=== PATIENT | male | born 1975 | race Caucasian/White ===

== ENCOUNTER 2016-09-29 19:54 | Emergency (ER) | payer OTHER ==
[2016-09-29 20:01] VITALS: BP 125/84; PULSE 82; TEMP 98.3; BMI 24.4
[2016-09-29] MEDS ORDERED: DIPHTH,PERTUSS(ACELL),TET 0.5 ML DISP.SYRIN IM ONE (20:01)
--- NOTE | 2016-09-29 20:15 | PDOC ---
History of Present Illness - General History Source: Patient Exam Limitations: No Limitations - History of Present Illness Initial Comments: 09/29/16 20:26 The patient is a 41 year old male, with no significant past medical history, who presents to the emergency department with an laceration injury to his left pinky finger status post getting it crushed by a drill. The patient reports that just prior to arrival he was taking a screw out of the wall with a drill when the pressure of the drill crushed his finger. He states that he does not believe the finger is broken and reports that his pain is a 6/10 in severity. The patient states that his tetanus is not up to date. Allergies: None Social history:Current everyday smoker (10 cigarettes per day) <Olena Brar - Last Filed: 09/29/16 21:17> <Patrick Miller - Last Filed: 09/30/16 03:36> - General Chief Complaint: Laceration Stated Complaint: INJURY TO LEFT PINKY Time Seen by Provider: 09/29/16 20:01 Past History <Olena Brar - Last Filed: 09/29/16 21:17> - Past Medical History Other medical history: DENIES - Immunization History Td Vaccination: Yes - Psycho/Social/Smoking Cessation Hx Anxiety: No Suicidal Ideation: No Smoking History: Current every day smoker Have you smoked in the past 12 months: Yes Number of Cigarettes Smoked Daily: 10 Information on smoking cessation initiated: Yes 'Breaking Loose' booklet given: 09/29/16 Hx Alcohol Use: No Drug/Substance Use Hx: No Substance Use Type: None <Patrick Miller - Last Filed: 09/30/16 03:36> - Past Medical History Allergies/Adverse Reactions: Allergies Allergy/AdvReac Type Severity Reaction Status Date / Time No Known Allergies Allergy Verified 09/29/16 19:55 Home Medications: Ambulatory Orders NK [No Known Home Medication] 09/29/16 Review of Systems - Review of Systems Able to Perform ROS?: Yes Comments:: 09/29/16 20:27 GENERAL/CONSTITUTIONAL: No fever or chills. No weakness. HEAD, EYES, EARS, NOSE AND THROAT: No change in vision. No ear pain or discharge. No sore throat. CARDIOVASCULAR: No chest pain or shortness of breath. RESPIRATORY: No cough, wheezing, or hemoptysis. GASTROINTESTINAL: No nausea, vomiting, diarrhea or constipation. GENITOURINARY: No dysuria, frequency, or change in urination. MUSCULOSKELETAL: No joint or muscle swelling or pain. No neck or back pain. SKIN: +Laceration to left pinky finger No rash NEUROLOGIC: No headache, vertigo, loss of consciousness, or change in strength/ sensation. ENDOCRINE: No increased thirst. No abnormal weight change. HEMATOLOGIC/LYMPHATIC: No anemia, easy bleeding, or history of blood clots. ALLERGIC/IMMUNOLOGIC: No hives or skin allergy. <Olena Brar - Last Filed: 09/29/16 21:17> *Physical Exam - Vital Signs Last Vital Signs Temp Pulse Resp BP Pulse Ox 98.3 F 82 16 125/84 100 09/29/16 19:57 09/29/16 19:57 09/29/16 19:57 09/29/16 19:57 09/29/16 19:57 - Physical Exam Comments: 09/29/16 20:27 GENERAL: Awake, alert, and fully oriented, in no acute distress HEAD: No signs of trauma EYES: PERRLA, EOMI, sclera anicteric, conjunctiva clear ENT: Auricles normal inspection, hearing grossly normal, nares patent, oropharynx clear without exudates. Moist mucosa NECK: Normal ROM, supple, no lymphadenopathy, JVD, or masses LUNGS: Breath sounds equal, clear to auscultation bilaterally. No wheezes, and no crackles HEART: Regular rate and rhythm, normal S1 and S2, no murmurs, rubs or gallops ABDOMEN: Soft, nontender, normoactive bowel sounds. No guarding, no rebound. No masses EXTREMITIES: Normal range of motion, no edema. No clubbing or cyanosis. No cords, erythema, or tenderness NEUROLOGICAL: Cranial nerves II through XII grossly intact. Normal speech, normal gait SKIN:+2cm laceration on the volar surface of the 5th digit. Warm, Dry, normal turgor. <Olena Brar - Last Filed: 09/29/16 21:17> - Vital Signs Last Vital Signs Temp Pulse Resp BP Pulse Ox 98.3 F 82 16 125/84 100 09/29/16 19:57 09/29/16 19:57 09/29/16 19:57 09/29/16 19:57 09/29/16 19:57 <Patrick Miller - Last Filed: 09/30/16 03:36> ED Treatment Course - Medications Given in the ED: ED Medications Discontinued Medications Generic Name Dose Route Start Last Admin Trade Name Subha PRN Reason Stop Dose Admin Diphtheria/Tetanus/Acell Pertussis 0.5 ml 09/29/16 20:01 09/29/16 20:13 Boostrix - IM 09/29/16 20:02 0.5 ml .ONCE ONE Administration <Olena Brar - Last Filed: 09/29/16 21:17> Medical Decision Making - Medical Decision Making 09/29/16 21:17 Placed 5 6-0 nylon sutures into the laceration. Anesthetized the site and irrigated the site. Explored for foreign bodies none present, repaired the laceration and dressed it. <Olena Brar - Last Filed: 09/29/16 21:17> - Medical Decision Making 09/30/16 03:35 plain films: no fx, no fb, as read by me lac repaired tetanus administered stitches out 1 week <Patrick Miller - Last Filed: 09/30/16 03:36> *DC/Admit/Observation/Transfer - Attestations Scribe Attestion: 09/29/16 20:27 Documentation prepared by TUCKER Malave, acting as medical staff coordinator for Patrick Miller MD. <Olena Brar - Last Filed: 09/29/16 21:17> <Patrick Miller - Last Filed: 09/30/16 03:36> Diagnosis at time of Disposition: Laceration - Discharge Dispostion Disposition: HOME Condition at time of disposition: Stable - Patient Instructions Printed Discharge Instructions: Tips to Help You Stop Smoking, DI for Laceration Repair Additional Instructions: stitches out in 1 week
== END 2016-09-29 20:57 | disposition home or self-care (01) ==
LOC: FER 19:54
PROC: 0HQGXZZ Repair Left Hand Skin, External Approach (ICD-10-PCS; principal; 2016-09-29)
PROC: 3E0234Z Introduction of Serum, Toxoid and Vaccine into Muscle, Percutaneous Approach (ICD-10-PCS; 2016-09-29)
DX: S61.217A Laceration without foreign body of left little finger without damage to nail, initial encounter (principal); W45.8XXA Other foreign body or object entering through skin, initial encounter; Y93.89 Activity, other specified; Y92.9 Unspecified place or not applicable
CPT/HCPCS: 73140-TC-LT; 90715; 99282-25